=== PATIENT | female | born 1960 | race Caucasian/White ===

== ENCOUNTER 2016-04-29 10:44 | Emergency (ER) | payer OTHER ==
[~2016-04-29] VITALS: Ht 162.6 cm; Wt 66.0 kg
[~2016-04-29 10:44] MED LIST: ACET500C5 PO; IBUP800T25 PO; IBUPROFEN; OMEP20CA9
[2016-04-29 10:47] VITALS: Ht 162.6 cm; Wt 66.0 kg
[2016-04-29] MEDS ORDERED: LIDOCAINE/MYLANTA 40 ML BTL PO STA (11:31)
[2016-04-29] MEDS ORDERED: ONDANSETRON 4 MG INJ IV STA (11:31)
[2016-04-29] MEDS ORDERED: SOD CHLORIDE 0.9% 1,000 ML IV STA (11:31)
[2016-04-29] MEDS ORDERED: FAMOTIDINE 20 MG INJ IV STA (11:31)
[2016-04-29 12:03] LABS: ADD SCAN DIFF NO
[2016-04-29 12:09] LABS: BASOPHILS % 0.6 % (0.0-2.0); EOSINOPHILS # 0.1 10^3/ul (0.0-0.5); EOSINOPHILS % 1.4 % (0.0-7.0); HEMATOCRIT 40.5 % (37.0-47.0); HEMOGLOBIN 13.6 g/dl (12.0-16.0); LYMPHOCYTES # 2.5 10^3/ul (0.8-2.9); LYMPHOCYTES % 50.8 % (15.0-51.0); MEAN CORPUSCULAR HEMOGLOBIN 31.9 pg (29.0-33.0); MEAN CORPUSCULAR HGB CONC 33.6 g/dl (32.0-37.0); MEAN CORPUSCULAR VOLUME 94.8 fl (82.0-101.0); MEAN PLATELET VOLUME 12.8 fl (7.4-10.4); MONOCYTE # 0.4 10^3/ul (0.3-0.9); MONOCYTES % 7.8 % (0.0-11.0); NEUTROPHIL # 1.9 10^3/ul (1.6-7.5); NEUTROPHILS % 39.2 % (39.0-77.0); PLATELET COUNT 148 10^3/UL (140-415); RED BLOOD COUNT 4.27 10^6/ul (4.20-5.40); RED CELL DISTRIBUTION WIDTH 12.6 % (11.5-14.5); WHITE BLOOD COUNT 4.9 10^3/ul (4.8-10.8)
[2016-04-29 12:16] LABS: ALBUMIN 4.3 g/dl (3.3-4.9)
[2016-04-29 12:17] LABS: POTASSIUM 3.6 mmol/L (3.5-5.1)
[2016-04-29 12:19] LABS: ALBUMIN/GLOBULIN RATIO 1.3; BILIRUBIN,INDIRECT 0.1 mg/dl (0-1.1); BILIRUBIN,TOTAL 0.1 mg/dl (0.2-1.3); CREATININE 0.56 mg/dl (0.44-1.00); TOTAL PROTEIN 7.6 g/dl (6.1-8.1)
[2016-04-29 12:20] LABS: CALCIUM 9.2 mg/dl (8.4-10.2)
[2016-04-29] MEDS ORDERED: OMEP20CA16 PO (12:46)
--- NOTE | 2016-04-29 12:55 | ERD ---
ER Documentation Chief Complaint Date/Time DATE: 04/29/16 TIME: 12:51 Chief Complaint LUQ abd pain radiating to back x 5 days with N/V HPI 55-year-old female with a past medical history of gastritis presents to the ED complaining of nausea, vomiting that started 4 days ago. Reports that she had some slight bilious vomiting. Describes her abdomen pain as a hot sensation. Reports that it is in the left upper quadrant and is nonradiating. Rates it a 9 out of 10. Denies any vaginal bleeding, vaginal discharge, chest pain, shortness of breath, wheezing, cough, fever, chills. Reports that her last endoscopy was 3 years ago. States that she is currently not taking a PPI or H2 reagan. ROS All systems reviewed and are negative except as per history of present illness. Medications Home Meds Active Scripts Omeprazole* (Omeprazole*) 20 Mg Capsule., 20 MG PO BID, #30 Prov:LUIS FERNANDO MOHAMUD PA-C 04/29/16 Ibuprofen* (Motrin*) 800 Mg Tab, 800 MG PO Q6H Y for PAIN AND OR ELEVATED TEMP, #30 TAB Prov:CARLY WAKEFIELD PA-C 09/05/15 Acetaminophen* (Tylophen*) 500 Mg Capsule, 1 CAP PO Q6H Y for PAIN AND OR ELEVATED TEMP, #30 CAP 0 Refills Prov:ARDEN AVILES PA-C 07/14/15 Reported Medications [Ibuprofen] No Conflict Check 04/06/11 Omeprazole* (Prilosec*) 20 Mg Capsule. 04/03/11 Allergies Allergies: Coded Allergies: No Known Allergy (Unverified , 04/06/11) PMhx/Soc Medical and Surgical Hx: pt denies Medical Hx History of Surgery: Yes ( X4) Anesthesia Reaction: No Hx Neurological Disorder: No Hx Respiratory Disorders: No Hx Cardiac Disorders: No Hx Psychiatric Problems: No Hx Miscellaneous Medical Probl: Yes (ARTRITIS) Hx Alcohol Use: No Hx Substance Use: No Hx Tobacco Use: Yes Smoking Status: Current some day smoker Physical Exam Vitals Vital Signs Date Time Temp Pulse Resp B/P Pulse Ox O2 Delivery O2 Flow Rate FiO2 04/29/16 10:47 97.8 68 18 116/85 98 Physical Exam Const: Ytf-yno-nleekzemg, well-nourished. In no acute distress. Head: Atraumatic, normocephalic Eyes: Normal Conjunctiva without injection. No purulent discharge. ENT: Normal external ear, nose. Moist oropharynx without tonsillar exudates. Non -erythematous pharynx. Uvula midline. No drooling. No trismus. Neck: No cervical midline tenderness. Full range of motion. No meningismus. No cervical lymphadenopathy. No JVD. Resp: Clear to auscultation bilaterally. No wheezing, rhonchi, rales, or crackles. No accessory muscle use. No retractions. Cardio: Regular rate and rhythm. No murmurs, rubs or gallops. Abd: Soft, tenderness to palpation of the left upper quadrant, non distended. Normal bowel sounds. No palpable masses. No rebound tenderness. No guarding. Negative McBurney's point. Negative psoas sign. Negative obturator sign. Skin: No petechiae or rashes Back: No midline tenderness. No CVA tenderness. Ext: No cyanosis, or edema. Neur: Awake and alert. Normal gait. Normal coordination. Psych: Normal Mood and Affect Result Diagram: 04/29/16 1145 04/29/16 1145 Results 24 hrs Laboratory Tests Test 04/29/16 11:45 Alanine Aminotransferase (ALT/SGPT) 30IU/L Albumin 4.3g/dl Albumin/Globulin Ratio 1.30 Alkaline Phosphatase 81IU/L Anion Gap 15 Aspartate Amino Transf (AST/SGOT) 24IU/L Basophils # 0.010^3/ul Basophils % 0.6% Blood Urea Nitrogen 16mg/dl Calcium Level 9.2mg/dl Carbon Dioxide Level 29mmol/L Chloride Level 103mmol/L Creatinine 0.56mg/dl Direct Bilirubin 0.00mg/dl Eosinophils # 0.110^3/ul Eosinophils % 1.4% Globulin 3.30g/dl Glucose Level 76mg/dl Hematocrit 40.5% Hemoglobin 13.6g/dl Indirect Bilirubin 0.1mg/dl Lipase 136U/L Lymphocytes # 2.510^3/ul Lymphocytes % 50.8% Mean Corpuscular Hemoglobin 31.9pg Mean Corpuscular Hemoglobin Concent 33.6g/dl Mean Corpuscular Volume 94.8fl Mean Platelet Volume 12.8fl Monocytes # 0.410^3/ul Monocytes % 7.8% Neutrophils # 1.910^3/ul Neutrophils % 39.2% Nucleated Red Blood Cells # 0.010^3/ul Nucleated Red Blood Cells % 0.0/100WBC Platelet Count 08041^3/UL Potassium Level 3.6mmol/L Red Blood Count 4.2710^6/ul Red Cell Distribution Width 12.6% Sodium Level 143mmol/L Total Bilirubin 0.1mg/dl Total Protein 7.6g/dl White Blood Count 4.910^3/ul Current Medications Medications (Trade) Dose Ordered Sig/Silvana Route PRN Reason Start Time Stop Time Status Last Admin Dose Admin Sodium Chloride (NS) 1,000 ml @ 1,000 mls/hr Q1H STAT IV 04/29/16 11:31 04/29/16 12:30 DC 04/29/16 12:20 Famotidine (Pepcid Iv) 20 mg ONCE STAT IV 04/29/16 11:31 04/29/16 11:33 DC 04/29/16 12:20 Miscellaneous Medication (Gi Cocktail (2)) 40 ml ONCE STAT PO 04/29/16 11:31 04/29/16 11:33 DC 04/29/16 12:23 Ondansetron HCl (Zofran Inj) 4 mg ONCE STAT IV 04/29/16 11:31 04/29/16 11:33 DC 04/29/16 12:20 Procedures/MDM This is a 55-year-old female with a past medical history of gastritis presents to the ED complaining of left upper quadrant pain that started 4 days ago associated with vomiting. Patient is afebrile and nontoxic-appearing. Patient has normal vital signs. Patient was further worked up with CBC, CMP, lipase. Patient's pain and symptoms have improved after treatment with 1 L of normal saline, GI cocktail, 20 mg IV famotidine, 4 mg IV Zofran. CBC: No leukocytosis. No e/o of systemic infection. No e/o anemia. CMP: No e/o severe acidosis, alkalosis, renal failure, diabetic ketoacidosis, liver disease Lipase within normal limits. Urine: No leukocyte esterase, no nitrites, no hematuria. Patient symptoms are likely due to gastritis. I strictly instructed her to follow-up with a outside industrial sales representative for an endoscopy to rule out any gastric ulcers. A differential diagnosis considered includes but is not limited to gastritis, GERD, peptic ulcer disease, cholecystitis, choledocholithiasis, cholangitis, pancreatitis, appendicitis, bowel obstruction, ileus, volvulus, nephrolithiasis, pyelonephritis, hepatitis, perforated viscus, diverticulitis, abdominal hernia, acute abdomen, mesenteric ischemia or other emergent conditions. Discharge medications: Omeprazole Follow up with primary care physician in 1-2 days for referral to outside industrial sales representative. Instructed patient to return to the ED sooner for any worsening symptoms. Patient's questions were answered. Patient understood and agreed with discharge plan. Patient discharged stable. Departure Diagnosis: Primary Impression: Abdominal pain Abdominal location: left upper quadrant Qualified Code: R10.12 - Left upper quadrant pain Condition: Stable Patient Instructions: Abdominal Pain, Gastritis Vs. Ulcer Referrals: [facility] YOU HAVE RECEIVED A MEDICAL SCREENING EXAM AND THE RESULTS INDICATE THAT YOU DO NOT HAVE A CONDITION THAT REQUIRES URGENT TREATMENT IN THE EMERGENCY DEPARTMENT. FURTHER EVALUATION AND TREATMENT OF YOUR CONDITION CAN WAIT UNTIL YOU ARE SEEN IN YOUR DOCTORS OFFICE WITHIN THE NEXT 1-2 DAYS. IT IS YOUR RESPONSIBILITY TO MAKE AN APPOINTMENT FOR [facility]- CARE. IF YOU HAVE A PRIMARY DOCTOR --you should call your primary doctor and schedule an appointment IF YOU DO NOT HAVE A PRIMARY DOCTOR YOU CAN CALL OUR PHYSICIAN REFERRAL HOTLINE AT IF YOU CAN NOT AFFORD TO SEE A PHYSICIAN YOU CAN CHOSE FROM THE FOLLOWING [facility] [address] [facility]. [facility] [address] [facility]. [facility] [address] [facility] [facility] [address] [facility]. [facility] [address] [facility] [facility]. [address] [facility]. [facility] YOU HAVE RECEIVED A MEDICAL SCREENING EXAM AND THE RESULTS INDICATE THAT YOU DO NOT HAVE A CONDITION THAT REQUIRES URGENT TREATMENT IN THE EMERGENCY DEPARTMENT. FURTHER EVALUATION AND TREATMENT OF YOUR CONDITION CAN WAIT UNTIL YOU ARE SEEN IN YOUR DOCTORS OFFICE WITHIN THE NEXT 1-2 DAYS. IT IS YOUR RESPONSIBILITY TO MAKE AN APPOINTMENT FOR [facility]OLOW-UP CARE. IF YOU HAVE A PRIMARY DOCTOR --you should call your primary doctor and schedule and appointment IF YOU DO NOT HAVE A PRIMARY DOCTOR YOU CAN CALL OUR PHYSICIAN REFERRAL HOTLINE AT . IF YOU CAN NOT AFFORD TO SEE A PHYSICIAN YOU CAN CHOSE FROM THE FOLLOWING [facility] INSTITUTIONS: [facility] [place] [place] [address] [place] [address] [facility] [address] [place], [place] [id number] [place] [address] [address] [place] [address] [facility] URGENT CARE/SPECIALTIES Additional Instructions: Visite a diane cachorro hung para un EXAMEN para valente endoscopia. Regrese a estas instalaciones si no se mejora susie esperbamos o susie le alexs. LUIS FERNANDO MOHAMUD PA-C Apr 29, 2016 12:54
== END 2016-04-29 13:05 | disposition home or self-care (01) ==
LOC: FTE 10:44
DX: R10.12 Left upper quadrant pain (principal); F17.210 Nicotine dependence, cigarettes, uncomplicated
CPT/HCPCS: 80053; 83690; 85025; J2405; J7030; Z7610; 36415; 96374; 96375

== ENCOUNTER 2016-07-20 15:37 | Emergency (ER) | payer OTHER ==
[~2016-07-20] VITALS: Wt 66.0 kg
[~2016-07-20 15:37] MED LIST changes: +OMEP20CA16 PO
[2016-07-20] MEDS ORDERED: TETRACAINE 0.5% 4 ML OPH RIGHT EYE ONE (17:00)
[2016-07-20] MEDS ORDERED: FLUORESCEIN STRIP RIGHT EYE ONE (17:00)
--- NOTE | 2016-07-20 17:31 | ERD ---
ER Documentation Chief Complaint Date/Time DATE: 07/20/16 TIME: 17:26 Chief Complaint RIGHT EYE REDNESS, PAIN, DENIES INJURY HPI This 56-year-old female presents to emergency department today for eye pain and redness. Patient reports 60 minutes ago she felt itching in her right eye developed a burning sensation in addition to a sensation of foreign body explained "like a hair is in my eye". Reports that she looked in the [place] her I was shockingly red, she denies any watering, or mucousy discharge, patient denies any change in vision, denies any seasonal allergy symptoms or hypertension. Patient denies headache, nausea or vomiting. ROS All systems reviewed and are negative except as per history of present illness. Medications Home Meds Active Scripts Tetrahydrozoline Hcl/Peg's (Eye Moisturizing Relief Drp) 15 Ml Drops, 15 ML OP BID, #1 BOTTLE Prov:MAGGI,MELODY 07/20/16 Omeprazole* (Omeprazole*) 20 Mg Capsule., 20 MG PO BID, #30 Prov:LUIS FERNANDO MOHAMUD PA-C 04/29/16 Ibuprofen* (Motrin*) 800 Mg Tab, 800 MG PO Q6H Y for PAIN AND OR ELEVATED TEMP, #30 TAB Prov:CARLY WAKEFIELD PA-C 09/05/15 Acetaminophen* (Tylophen*) 500 Mg Capsule, 1 CAP PO Q6H Y for PAIN AND OR ELEVATED TEMP, #30 CAP 0 Refills Prov:ARDEN AVILES PA-C 07/14/15 Reported Medications [Ibuprofen] No Conflict Check 04/06/11 Omeprazole* (Prilosec*) 20 Mg Capsule. 04/03/11 Allergies Allergies: Coded Allergies: No Known Allergy (Unverified , 04/06/11) PMhx/Soc History of Surgery: Yes ( X4) Anesthesia Reaction: No Hx Neurological Disorder: No Hx Respiratory Disorders: No Hx Cardiac Disorders: No Hx Psychiatric Problems: No Hx Miscellaneous Medical Probl: Yes (ARTRITIS) Hx Alcohol Use: No Hx Substance Use: No Hx Tobacco Use: Yes Smoking Status: Current every day smoker Physical Exam Vitals Vital Signs Date Time Temp Pulse Resp B/P Pulse Ox O2 Delivery O2 Flow Rate FiO2 07/20/16 15:46 97.6 64 18 142/73 99 Vitals stable, triage notes were Physical Exam Const: No acute distress Head: Atraumatic EYE; conjunctiva right red at medial canthus mid pupil spreading to to 1800. No foreign body observed under eyelids, patient has mascara on lashes without mucus or crest. Lacrimal puncta without purulent discharge with palpation. Eye Exam: Visual Acuity: Right eye 20/40, left eye 20/30, both eyes 20/20 without corrective lenses Visual Coyne: Intact in all four quadrants bilaterally Lac ducts/glands: No swelling Lids w/ evertion: Normal, no foreign body Conj/[facility]: Clear, negative Fluorescein/Elizabeth's Anterior Chamber: Clear ENT: Normal External Ears, Nose and Mouth. Neck: Resp: Respirations even and unlabored Cardio: Abd: Skin: Back: Ext: Neur: Awake and alert Psych: Normal Mood and Affect Results 24 hrs Current Medications Medications (Trade) Dose Ordered Sig/Silvana Route PRN Reason Start Time Stop Time Status Last Admin Dose Admin Tetracaine HCl (Tetracaine 0.5% Steri-Unit Tuyet) 1 drop ONCE ONCE RIGHT EYE 07/20/16 17:00 07/20/16 17:01 DC Fluorescein Sodium (Iycsd-E-Mresg) 1 strip ONCE ONCE RIGHT EYE 07/20/16 17:00 07/20/16 17:01 DC Procedures/MDM This pleasant 55-year-old female presents to emergency department today for evaluation of sudden onset right eye pain, redness and itchy burning sensation. Patient denies any injury but has a foreign body sensation, suspected debris in eye, corneal abrasion, however this was ruled out with a normal eye examination with slit lamp and fluorescein stain. Visual acuity normal, patient has obvious blood red conjunctiva consistent with subconjunctival hemorrhage. Patient teaching provided. Patient discharged with ophthalmic moisturizing eyedrops for comfort, [id number] antihistamine for allergy symptoms. Return to emergency room for changes in vision or eye pain. I feel the patient is stable for discharge at this time with outpatient management by primary care physician with follow-up if indicated. I have discussed results, examination findings, the treatment plan with the patient and family present prior to discharge. Indications for emergent reevaluation, side effects of medication were also discussed. All questions were answered. Patient verbalizes understanding and agrees with plan of care. Departure Diagnosis: Primary Impression: Subconjunctival hemorrhage of right eye Condition: Good Patient Instructions: Subconjunctival Hemorrhage [facility] Additional Instructions: Thank you for for coming to [facility] for your care today. Please ask your nurse or provider if you have questions about your care today and do not leave until all your questions have been answered. Please use any medications given as directed and follow-up with your doctor (or the doctor you were referred to) in the next 2-3 days. If you do not have a primary care doctor you may follow up at the [facility] (listed below). You may also use motrin and tylenol as needed for fever and/or pain unless instructed otherwise by your provider or nurse. Indications for more urgent follow-up have been discussed, but you may return to the Emergency Department at ANY time for any worrisome or worsening symptoms. If you have abdominal pain, please know that no test or exam you received is perfect and you should follow up within 8 hours for continued pain. If you had any imaging studies today, such as an X-Ray or CT Scan, these studies will be reviewed later by a radiologist. You will be called if there are important findings that were not identified today, so make sure the contact information you provided at registration is correct. If you received any narcotic pain control medicine today, such as Vicodin, Morphine or Dilaudid, your coordination and judgment may be affected for a number of hours. Please do not drive or operate heavy machinery, and you may want someone to assist you at home. If you were given a prescription for narcotic medication, be aware that it is very addictive- use sparingly and only if necessary. RACHEAL TAY Jul 20, 2016 17:31
[2016-07-20] MEDS ORDERED: TETR15DR12 OP (17:33)
[2016-07-20 18:04] VITALS: BP 117/69; PULSE 57; RESP 10; TEMP 97.4
== END 2016-07-20 18:05 | disposition home or self-care (01) ==
LOC: FTE 15:37
DX: H11.31 Conjunctival hemorrhage, right eye (principal); F17.210 Nicotine dependence, cigarettes, uncomplicated
CPT/HCPCS: Z7502; Z7610; 99283

== ENCOUNTER 2016-08-06 09:02 | Day surgery (SDC) | payer OTHER ==
[~2016-08-06] VITALS: Ht 157.5 cm; Wt 62.5 kg
[~2016-08-06 09:02] MED LIST changes: +TETR15DR12 OP
[2016-08-06] MEDS ORDERED: meloxicam (09:39)
[2016-08-06] MEDS ORDERED: pantoprazole (09:39)
[2016-08-06 09:41] VITALS: Ht 157.5 cm; Wt 62.5 kg
[2016-08-06] MEDS ORDERED: LIDOCAINE 4% SOLUTION 50 ML BTL ONE (09:46)
[2016-08-06 09:53] VITALS: BP 122/69; PULSE 65; RESP 18
[2016-08-06] MEDS ORDERED: FENTAnyl 50 MCG/ML VIAL ONE (10:17)
[2016-08-06] MEDS ORDERED: MIDAZOLAM 1 MG/ML 2 ML INJ ONE ×2 (10:17)
[2016-08-06 10:45] VITALS: BP 116/59; PULSE 56; RESP 16
--- NOTE | 2016-08-06 10:56 | GILP ---
DATE OF PROCEDURE: 08/06/2016 PROCEDURE: Esophagogastroduodenoscopy. SURGEON: Camron Marquez MD PREOPERATIVE DIAGNOSIS: The patient presenting with history of chronic abdominal pain unresponsive to routine therapy including pantoprazole. Rule out peptic ulcer disease, esophagitis. POSTOPERATIVE DIAGNOSES: Multiple erosions in the antrum noted with mild diffuse erythema. Biopsy was done to rule out Helicobacter pylori infection. DESCRIPTION OF PROCEDURE: After the informed written consent was obtained, the patient was asked to lie on the left lateral side, 3 mg Versed and 50 mcg of fentanyl were given as intravenous anesthes ia. When the patient became somnolent, the Olympus video upper endoscope was introduced into the orophar ynx, then into the esophagus. Esophagus showed evidence of no ulcers, no neoplasm. No esophagitis. Scope at this time was advanced into the stomach. Multiple erosions were noted in the antrum. Di ffuse mild erythema noted in the rest of the gastric mucosa. Biopsy was done from the antrum, the l kathya curvature and the fundus to rule out H. pylori infection. Endoscope at this time was advanced into the duodenum. Duodenum appeared normal with no mucosal abnormality. Endoscope at this time w as withdrawn and the procedure was terminated. PLAN: Recommend change the pantoprazole to Dexilant 60 mg once a day for 2 months. Meanwhile wait for the pathology report. Dictated By: CAMRON FLORES/GUI Conf#: [id number] DID#: [id number] CC: CAMRON MARQUEZ MD; RANDY VÁZQUEZ M.D.;*[facility]*
== END 2016-08-06 17:07 | disposition home or self-care (01) ==
LOC: GIL 09:02
PROVIDERS: ATTEND Internal Medicine Gastroenterology
DX: K29.50 Unspecified chronic gastritis without bleeding (principal)
CPT/HCPCS: 43239; 88305; 88312; J2250; J3010; Z7610

== ENCOUNTER 2016-08-19 10:00 | Emergency (ER) | payer OTHER ==
[~2016-08-19] VITALS: Ht 157.5 cm; Wt 65.0 kg
[~2016-08-19 10:00] MED LIST changes: -ACET500C5 PO; -IBUP800T25 PO; -IBUPROFEN; -OMEP20CA16 PO; -OMEP20CA9; -TETR15DR12 OP; +meloxicam; +pantoprazole
[2016-08-19 10:03] VITALS: Ht 157.5 cm; Wt 65.0 kg
[2016-08-19] MEDS ORDERED: OMEP40CA6 PO (10:18)
[2016-08-19] MEDS ORDERED: ONDANSETRON 4 MG INJ IV STA (10:21)
[2016-08-19] MEDS ORDERED: morphine 4 MG/ML VIAL IV STA (10:21)
[2016-08-19 10:52] LABS: ADD SCAN DIFF NO
[2016-08-19 10:54] LABS: BASOPHILS % 0.6 % (0.0-2.0); EOSINOPHILS % 1.1 % (0.0-7.0); HEMATOCRIT 39.5 % (37.0-47.0); LYMPHOCYTES # 1.7 10^3/ul (0.8-2.9); LYMPHOCYTES % 46.1 % (15.0-51.0); MEAN CORPUSCULAR HEMOGLOBIN 33.2 pg (29.0-33.0); MEAN CORPUSCULAR HGB CONC 35.4 g/dl (32.0-37.0); MEAN CORPUSCULAR VOLUME 93.6 fl (82.0-101.0); MEAN PLATELET VOLUME 12.9 fl (7.4-10.4); MONOCYTE # 0.3 10^3/ul (0.3-0.9); NEUTROPHIL # 1.6 10^3/ul (1.6-7.5); NEUTROPHILS % 44.2 % (39.0-77.0); PLATELET COUNT 141 10^3/UL (140-415); RED BLOOD COUNT 4.22 10^6/ul (4.20-5.40); RED CELL DISTRIBUTION WIDTH 12.3 % (11.5-14.5); WHITE BLOOD COUNT 3.6 10^3/ul (4.8-10.8)
[2016-08-19 11:01] LABS: ADD UMIC NO; UR ASCORBIC ACID NEGATIVE (NEGATIVE); UR BILIRUBIN (Dip) NEGATIVE (NEGATIVE); UR BLOOD (Dip) NEGATIVE (NEGATIVE); UR CLARITY CLEAR (CLEAR); UR COLOR STRAW (YELLOW); UR GLUCOSE (Dip) NEGATIVE (NEGATIVE); UR KETONES (Dip) NEGATIVE (NEGATIVE); UR LEUKOCYTE ESTERASE (Dip) NEGATIVE Leu/ul (NEGATIVE); UR NITRITE (Dip) NEGATIVE (NEGATIVE); UR SPECIFIC GRAVITY (Dip) 1.005 (1.003-1.030); UR TOTAL PROTEIN (Dip) NEGATIVE (NEGATIVE); UR UROBILINOGEN (Dip) NEGATIVE (NEGATIVE)
--- NOTE | 2016-08-19 11:10 | RADRPT ---
PROCEDURE: Right upper quadrant abdominal ultrasound. CLINICAL INDICATION: Abdominal pain. TECHNIQUE: Multiple real-time longitudinal and transverse images of the right upper quadrant of th e abdomen were acquired utilizing a curved array transducer. Images were reviewed on a high-resoluti on PACS workstation. COMPARISON: None available. FINDINGS: There is normal size and echogenicity of the liver with no focal mass lesion identified . There is h epatopedal flow within the main portal vein. There is no gallbladder wall thickening, cholelithiasis , or pericholecystic fluid. There are multiple gallbladder polyps, the largest of which measures 5 m m. There is no intra or extrahepatic biliary ductal dilatation. The common bile duct measures 2.2 mm in maximal dimension. The visualized portions of the pancreas are unremarkable. No free fluid is i dentified. The right kidney measures 10.1 cm in length and demonstrates normal echogenicity. There is no hydron ephrosis, nephrolithiasis, or renal mass. IMPRESSION: 1. No acute abnormality or findings to suggest a source of the patient's symptoms. 2. Gallbladder polyps, the largest measuring 5 mm. RPTAT: EE .Miguelito Cedillo MD, MD Date Time Electronically viewed and signed by .Miguelito Cedillo MD, MD on 08/19/2016 11:09 .P/
[2016-08-19 11:11] LABS: ALANINE AMINOTRANSFERASE 35 IU/L (13-69); ALBUMIN 4.8 g/dl (3.3-4.9); ALBUMIN/GLOBULIN RATIO 1.77; ALKALINE PHOSPHATASE 74 IU/L (42-121); ANION GAP 9 (8-16); ASPARTATE AMINO TRANSFERASE 28 IU/L (15-46); BILIRUBIN,INDIRECT 0.3 mg/dl (0-1.1); BILIRUBIN,TOTAL 0.3 mg/dl (0.2-1.3); BLOOD UREA NITROGEN 14 mg/dl (7-20); CALCIUM 9.4 mg/dl (8.4-10.2); CARBON DIOXIDE 26 mmol/L (21-31); CHLORIDE 105 mmol/L (97-110); CREATININE 0.65 mg/dl (0.44-1.00); GLUCOSE 107 mg/dl (70-220); POTASSIUM 3.9 mmol/L (3.5-5.1); SODIUM 136 mmol/L (135-144); TOTAL PROTEIN 7.5 g/dl (6.1-8.1)
[2016-08-19 11:36] LABS: TROPONIN-I < 0.012 ng/ml (0.00-0.12)
[2016-08-19] MEDS ORDERED: HYDR-902 PO (12:40)
[2016-08-19] MEDS ORDERED: ONDA4TAB14 PO (12:40)
[2016-08-19] MEDS ORDERED: PANT40TA3 PO (12:40)
--- NOTE | 2016-08-19 12:42 | ERD ---
ER Documentation Chief Complaint Date/Time DATE: 08/19/16 TIME: 12:41 Chief Complaint RUQ PAIN WITH NAUSEA, 2WKS, GETTING WORSE TODAY HPI Patient is a 56-year-old female with gastritis who presents with abdominal pain. She has right upper quadrant abdominal pain which started 3 weeks ago. The pain comes and goes. She said the pain was worse today. She denies treatment. She has no fevers. She has had nausea but no vomiting. She had endoscopy done by Dr. Marquez on August 06 of this year. Upon review of old medical records this is the patient's eighth visit to the ER since 2011. ROS All systems reviewed and are negative except as per history of present illness. Medications Home Meds Active Scripts Pantoprazole* (Protonix*) 40 Mg Tablet., 40 MG PO DAILY, #20 TAB Prov:MALIK LACEY MD 08/19/16 Ondansetron (Ondansetron Odt) 4 Mg Tab.rapdis, 4 MG PO Q6H Y for NAUSEA AND/OR VOMITING, #10 TAB Prov:MALIK LACEY MD 08/19/16 Hydrocodone/Acetaminophen ([place] 10-325 Tablet) 1 Each Tablet, 1 TAB PO Q6H Y for PAIN, #7 TAB Prov:MALIK LACEY MD 08/19/16 Reported Medications Omeprazole* (Omeprazole*) 40 Mg Capsule., 40 MG PO DAILY, #30 CAP 08/19/16 Discontinued Reported Medications [pantoprazole] No Conflict Check 08/06/16 [meloxicam] No Conflict Check 08/06/16 Allergies Allergies: Coded Allergies: No Known Allergy (Unverified , 08/19/16) PMhx/Soc History of Surgery: No Anesthesia Reaction: No Hx Neurological Disorder: No Hx Respiratory Disorders: No Hx Cardiac Disorders: No Hx Psychiatric Problems: No Hx Miscellaneous Medical Probl: No Hx Alcohol Use: No Hx Substance Use: No Hx Tobacco Use: Yes Smoking Status: Former smoker FmHx Family History: No diabetes Physical Exam Vitals Vital Signs Date Time Temp Pulse Resp B/P Pulse Ox O2 Delivery O2 Flow Rate FiO2 08/19/16 12:47 98.0 62 14 126/68 100 Room Air 08/19/16 11:46 98.5 58 16 112/59 100 08/19/16 10:03 96.9 67 19 136/64 97 Physical Exam Const: Mild distress secondary to pain Head: Atraumatic Eyes: Normal Conjunctiva ENT: Normal External Ears, Nose and Mouth. Neck: Full range of motion..~ No meningismus. Resp: Clear to auscultation bilaterally Cardio: Regular rate and rhythm, no murmurs Abd: Soft, right upper quadrant tenderness to palpation without rebound or guarding Skin: No petechiae or rashes Back: No midline or flank tenderness Ext: No cyanosis, or edema Neur: Awake and alert Psych: Normal Mood and Affect Result Diagram: 08/19/16 1035 08/19/16 1035 Results 24 hrs Laboratory Tests Test 08/19/16 10:35 White Blood Count 3.610^3/ul Red Blood Count 4.2210^6/ul Hemoglobin 14.0g/dl Hematocrit 39.5% Mean Corpuscular Volume 93.6fl Mean Corpuscular Hemoglobin 33.2pg Mean Corpuscular Hemoglobin Concent 35.4g/dl Red Cell Distribution Width 12.3% Platelet Count 06402^3/UL Mean Platelet Volume 12.9fl Neutrophils % 44.2% Lymphocytes % 46.1% Monocytes % 8.0% Eosinophils % 1.1% Basophils % 0.6% Nucleated Red Blood Cells % 0.0/100WBC Neutrophils # 1.610^3/ul Lymphocytes # 1.710^3/ul Monocytes # 0.310^3/ul Eosinophils # 0.010^3/ul Basophils # 0.010^3/ul Nucleated Red Blood Cells # 0.010^3/ul Urine Color STRAW Urine Clarity CLEAR Urine pH 7.0 Urine Specific [place] 1.005 Urine Ketones NEGATIVEmg/dL Urine Nitrite NEGATIVEmg/dL Urine Bilirubin NEGATIVEmg/dL Urine Urobilinogen NEGATIVEmg/dL Urine Leukocyte Esterase NEGATIVELeu/ul Urine Hemoglobin NEGATIVEmg/dL Urine Glucose NEGATIVEmg/dL Urine Total Protein NEGATIVEmg/dl Sodium Level 136mmol/L Potassium Level 3.9mmol/L Chloride Level 105mmol/L Carbon Dioxide Level 26mmol/L Anion Gap 9 Blood Urea Nitrogen 14mg/dl Creatinine 0.65mg/dl Glucose Level 107mg/dl Calcium Level 9.4mg/dl Total Bilirubin 0.3mg/dl Direct Bilirubin 0.00mg/dl Indirect Bilirubin 0.3mg/dl Aspartate Amino Transf (AST/SGOT) 28IU/L Alanine Aminotransferase (ALT/SGPT) 35IU/L Alkaline Phosphatase 74IU/L Troponin I < 0.012ng/ml Total Protein 7.5g/dl Albumin 4.8g/dl Globulin 2.70g/dl Albumin/Globulin Ratio 1.77 Lipase 177U/L Current Medications Medications (Trade) Dose Ordered Sig/Silvana Route PRN Reason Start Time Stop Time Status Last Admin Dose Admin Morphine Sulfate (morphine) 4 mg ONCE STAT IV 08/19/16 10:21 08/19/16 10:22 DC 08/19/16 11:11 Ondansetron HCl (Zofran Inj) 4 mg ONCE STAT IV 08/19/16 10:21 08/19/16 10:22 DC 08/19/16 11:00 Procedures/MDM EKG read by me: Rate/Rhythm: Regular rate and rhythm at a rate of 64 Intervals: Normal Impression: No evidence of ischemia or arrhythmia Ultrasound shows gallbladder polyps per radiology. Smoking Cessation Therapy: Pt. was lectured for greater than 3 minutes on the health risks of continued smoking and the benefits of cessation. Patient is a 56-year-old female who presents with abdominal pain. Laboratory studies were basically normal. EKG was normal. Ultrasound was negative for gallbladder infection. At this point I believe outpatient management is appropriate. I doubt cholecystitis, pancreatitis, bowel obstruction, or appendicitis. I believe outpatient management is appropriate but the patient will need to follow-up closely with the primary doctor within 24 hours. She can return sooner for any worsening symptoms. She was given copies of her laboratory studies and ultrasound report prior to discharge. Departure Diagnosis: Primary Impression: Abdominal pain Abdominal location: right upper quadrant Qualified Code: R10.11 - Right upper quadrant abdominal pain Condition: Fair Patient Instructions: Abdominal Pain Additional Instructions: Llame al doctor MAANA y [place] valente SAGE PARA DENTRO DE 1-2 ESCALONA.Dgale a la secretaria que nosotros le instruimos hacer esta sage.Avise o llame si dinae condicin se empeora antes de la sage. Regresa aqui si peor o no mejor. MALIK LACEY MD Aug 19, 2016 12:41
[2016-08-19 12:47] VITALS: BP 126/68; PULSE 62; RESP 14; TEMP 98
== END 2016-08-19 12:49 | disposition home or self-care (01) ==
LOC: E/R 10:00
DX: R10.11 Right upper quadrant pain (principal); R11.0 Nausea; Z87.891 Personal history of nicotine dependence
CPT/HCPCS: 36415; 76705; 80053; 81003; 83690; 84484; 85025; 93005; J2270; J2405; Z7502

== ENCOUNTER 2016-11-07 06:19 | Day surgery (SDC) | payer OTHER ==
[2016-11-07] VITALS (9 sets, daily range): BP systolic 101–131; BP diastolic 54–72; PULSE 54–64; RESP 12–18; Ht 157.5 cm; Wt 63.0 kg
[~2016-11-07] VITALS: Ht 157.5 cm; Wt 63.0 kg
[~2016-11-07 06:19] MED LIST changes: +CEFAZOLIN 2 GM/50 ML (PMX) 50 ML IVPB SCH; +HYDR-902 PO; +OMEP40CA6 PO; +ONDA4TAB14 PO; +PANT40TA3 PO; +SOD CHLORIDE 0.9% 1,000 ML IV SCH; -meloxicam; -pantoprazole
[2016-11-07] MEDS ORDERED: CALC-143 PO (07:28)
[2016-11-07] MEDS ORDERED: ATOR40TA68 PO (07:28)
[2016-11-07] MEDS ORDERED: OXYCODONE/ACETAMINOPHEN (5/325) TAB PO PRN ×2 (08:00)
[2016-11-07] MEDS ORDERED: PROCHLORPERAZINE 10 MG INJ IV PRN (08:00)
[2016-11-07] MEDS ORDERED: ONDANSETRON 4 MG INJ IV PRN (08:00)
[2016-11-07] MEDS ORDERED: HYDROmorphONE (0.2 MG/ML) 10ML SYG IV PRN ×2 (08:00)
[2016-11-07] MEDS ORDERED: FENTAnyl 50 MCG/ML VIAL IV PRN (08:00)
[2016-11-07] MEDS ORDERED: MEPERIDINE 25 MG INJ IV PRN (08:00)
[2016-11-07] MEDS ORDERED: DIPHENHYDRAMINE 50 MG INJ IV PRN (08:00)
[2016-11-07] MEDS ORDERED: ROCURONIUM 50 MG INJ ONE (08:50)
[2016-11-07] MEDS ORDERED: CEFAZOLIN 1 GM INJ ONE (08:50)
[2016-11-07] MEDS ORDERED: SUCCINYLCHOLINE CHLORIDE 100 MG/5 ML SYG IV ONE (08:50)
[2016-11-07] MEDS ORDERED: LIDOCAINE 2% (SDV) 5 ML INJ ONE (08:50)
[2016-11-07] MEDS ORDERED: PROPOFOL 20 ML ONE (08:50)
[2016-11-07] MEDS ORDERED: MIDAZOLAM 1 MG/ML 2 ML INJ ONE (08:50)
[2016-11-07] MEDS ORDERED: FENTAnyl 50 MCG/ML VIAL ONE (08:51)
[2016-11-07] MEDS ORDERED: DEXAMETHASONE 4 MG/ML 1 ML INJ ONE (09:04)
[2016-11-07] MEDS ORDERED: BUPIVACAINE 0.25% (MPF) 30 ML INJ ONE (09:04)
[2016-11-07] MEDS ORDERED: METOCLOPRAMIDE 10 MG INJ ONE (09:04)
[2016-11-07] MEDS ORDERED: ONDANSETRON 4 MG INJ ONE (09:04)
[2016-11-07] MEDS ORDERED: SUGAMMADEX SODIUM 200 MG/2 ML VIAL IV ONE (09:14)
[2016-11-07] MEDS ORDERED: KETOROLAC 30 MG INJ ONE (09:17)
--- NOTE | 2016-11-07 09:33 | SIPON ---
Date/Time of Note Date/Time of Note DATE: 11/07/16 TIME: 09:32 Operative Report Preoperative Diagnosis symptomatic gallstones Postoperative Diagnosis same Operation/Procedure Performed 1. laparoscopic cholecystectomy 2. therapeutic injection of subcutaneous marcaine Surgeon see signature line oceanographer assistant none Anesthesia: general Estimated blood loss: 0 - 10 ml's Transfusion Required none Specimen gallbladder Grafts/Implants none Complications none Kermit STEINER Nov 07, 2016 09:33
[2016-11-07] MEDS ORDERED: HYDROCODONE/APAP (5/325) TAB PO ONE (10:00)
--- NOTE | 2016-11-07 10:12 | OPR ---
DATE OF OPERATION: 11/07/2016 INDICATION: The patient is a 56-year-old female with symptomatic gallstones. She requests surgical excision of her gallbladder. Risks, alternatives, benefits of procedure were discussed. The patient expressed understanding and consents to the operation. Potential complications including, but not limited to bleeding, infection, intra-abdominal organ injury, bile duct injury, need for reoperation, and possibly were discussed with the patient. Patient expresses understanding and consents to the operation. PREOPERATIVE DIAGNOSIS: Symptomatic gallstones. POSTOPERATIVE DIAGNOSIS: Symptomatic gallstones. OPERATIONS: 1. Laparoscopic cholecystectomy. 2. Therapeutic subcutaneous Marcaine injection. SURGEON: Hemanth Isidro MD SPECIMEN: Gallbladder. COMPLICATIONS: None. ESTIMATED BLOOD LOSS: 10 mL. OPERATIVE PROCEDURE: Patient was taken to the operating room and prepped and draped in usual sterile fashion. Surgical time-out was performed. IV antibiotics were given. Infraumbilical transverse incision was made with a 15 blade. Dissection cautery was carried down to the fascia. The fascia was grasped with Pastor's and divided with curved Grier scissors. 0 Vicryl U stitch was placed into the fascia. A balloon Mast trocar was introduced. Pneumoperitoneum was established. A midepigastric 12 mm optical trocar was placed under direct visualization. Right upper quadrant and right upper flank 5 mm optical trocar was placed under direct visualization. Upon initial inspection, there were some adhesions to the gallbladder. The gallbladder was retracted in a lateral and outward direction. Lateral dissection was initiated with cautery to allow mobilization. The cystic duct was carefully dissected out. The critical view was established. The cystic duct was divided with 3 clips proximal, and 1 clip distal. The division was performed with a 35 mm echelon vascular stapler. The cystic artery was also included in the staple load for the division. The gallbladder was taken off the gallbladder bed. There was good hemostasis. The gallbladder was retrieved using an EndoCatch bag. The ports removed under direct visualization, an 0 Vicryl U stitch was tied down. The skin was closed using skin jennifer. Therapeutic subcutaneous Marcaine was injected throughout the port sites. Dry dressings were applied. Dictated By: Adrien Caballero /yg/kim /Document#: [id number]
--- NOTE | 2016-11-07 16:37 | RADRPT ---
Vent Rate: 56 bpm RR Interval: 0 msec MD Interval: 114 msec QRS Duration: 80 msec QT Interval: 430 msec QTC Interval: 414 msec P-R-T [place]: 39 - 50 - 21 degrees Sinus bradycardia Otherwise normal ECG Electronically Signed By: Adrian Phillips [id number]
== END 2016-11-07 12:00 | disposition home or self-care (01) ==
LOC: SDS 06:19
PROVIDERS: ATTEND Surgery
DX: K80.20 Calculus of gallbladder without cholecystitis without obstruction (principal); E78.5 Hyperlipidemia, unspecified
CPT/HCPCS: 47562; 88304; 93005; J0690; J1100; J1170; J1885; J2250; J2405; J2765; J3010; Z7512; Z7610; J7999

== ENCOUNTER 2017-03-31 12:03 | Emergency (ER) | END 2017-03-31 17:19 | disposition left against medical advice (07) ==

== ENCOUNTER 2017-10-31 11:40 | Emergency (ER) | END 2017-10-31 14:04 | disposition home or self-care (01) ==

== ENCOUNTER 2017-12-03 09:38 | Emergency (ER) | END 2017-12-03 11:00 | disposition home or self-care (01) ==

== ENCOUNTER 2018-05-18 12:11 | Emergency (ER) | payer OTHER ==
[~2018-05-18] VITALS: Wt 58.0 kg
[~2018-05-18 12:11] MED LIST changes: +ACET500C5 PO; +ATOR40TA68 PO; +CALC-143 PO; -CEFAZOLIN 2 GM/50 ML (PMX) 50 ML IVPB SCH; +CEPH-443 PO; +GABA300C16 PO; -HYDR-902 PO; +NAPR-985 PO; -ONDA4TAB14 PO; -PANT40TA3 PO; +PHEN-537 PO; -SOD CHLORIDE 0.9% 1,000 ML IV SCH; +TRAM50TA2 PO
[2018-05-18] MEDS ORDERED: KETOROLAC 30 MG INJ IM STA (13:05)
[2018-05-18] MEDS ORDERED: NAPR-985 PO (13:13)
--- NOTE | 2018-05-18 13:13 | ERD ---
ER Documentation Chief Complaint Chief Complaint back pain HPI Is a 57-year-old female who presents to the emergency room with complaint of right-sided pain x1 week. States pain starts in right flank and radiates down into right groin. Also states pain increases with walking and bending. Denies trauma, denies history of kidney stones. Denies dysuria. ROS All systems reviewed and are negative except as per history of present illness. Medications Home Meds Active Scripts Naproxen* (Naprosyn*) 500 Mg Tablet, 500 MG PO BID PRN for PAIN AND/OR INFLAMMATION, #30 TAB Prov:LUCIA CAREY [employer] OPERATOR 05/18/18 Gabapentin* (Gabapentin*) 300 Mg Capsule, 300 MG PO BID, #30 CAP Prov:AIDEE CROOKS DO 12/03/17 Acetaminophen* (Tylophen*) 500 Mg Capsule, 1 CAP PO Q6H PRN for PAIN AND OR ELEVATED TEMP, #30 CAP Prov:AIDEE CROOKS DO 12/03/17 Tramadol HCl (Tramadol HCl) 50 Mg Tablet, 50 MG PO Q4 PRN for PAIN, #20 TAB Prov:GURVINDER HERBERT PA-C 10/31/17 Naproxen* (Naprosyn*) 500 Mg Tablet, 500 MG PO BID PRN for PAIN AND/OR INFLAMMATION, #30 TAB Prov:GURVINDER HERBERT PA-C 10/31/17 Cephalexin* (Keflex*) 500 Mg Capsule, 500 MG PO QID for 7 Days, CAP Prov:NANCY NEVAREZ PA-C 07/04/17 Phenazopyridine Hcl* (Pyridium*) 100 Mg Tab, 100 MG PO TID PRN for URINARY PAIN, #8 TAB Prov:NANCY NEVAREZ PA-C 07/04/17 Reported Medications Calcium Citrate/Vitamin D (Citracal-Vitamin D 200 MG-250) 1 Each Tablet, 1 EACH PO BID, TAB 11/07/16 Atorvastatin* (Atorvastatin*) 40 Mg Tablet, 10 MG PO QHS, #30 TAB 11/07/16 Omeprazole* (Omeprazole*) 40 Mg Capsule.dr, 40 MG PO DAILY, #30 CAP 08/19/16 Allergies Allergies: Coded Allergies: No Known Allergy (Unverified , 12/03/17) PMhx/Soc History of Surgery: Yes (PARTIAL HYSTERECTOMY, C/ S X 4) Anesthesia Reaction: No Hx Neurological Disorder: No Hx Respiratory Disorders: No Hx Cardiac Disorders: Yes (HLP) Hx Psychiatric Problems: No Hx Miscellaneous Medical Probl: No Hx Alcohol Use: Yes (OCC.) Hx Substance Use: No Hx Tobacco Use: Yes FmHx Family History: No diabetes, No coronary disease, No other Physical Exam Vitals Vital Signs Date Temp Pulse Resp B/P (MAP) Pulse Ox O2 O2 Flow FiO2 Time Delivery Rate 05/18/18 98.0 57 16 116/58 98 Room Air 14:34 (77) 05/18/18 98.1 65 18 120/59 99 12:15 (79) Physical Exam Const: No acute distress Head: Atraumatic Eyes: Normal Conjunctiva, PERRL ENT: Normal External Ears, Nose and Mouth. Pharynx pink, no lesions, no exudate Neck: Full range of motion. No meningismus. Resp: Clear to auscultation bilaterally Cardio: Regular rate and rhythm, no murmurs Abd: Soft, non tender, non distended. Normal bowel sounds Skin: No petechiae or rashes Back: No midline or flank tenderness to palpation. +straight leg raise to right leg, burning pain down posterior to anterior LE Ext: No cyanosis, or edema Neur: Awake and alert Psych: Normal Mood and Affect Results 24 hrs Laboratory Tests Test 05/18/18 13:25 Urine Color YELLOW Urine Clarity SLIGHTLY CLOUDY Urine pH 6.0 Urine Specific [place] 1.013 Urine Ketones NEGATIVE mg/dL Urine Nitrite NEGATIVE mg/dL Urine Bilirubin NEGATIVE mg/dL Urine Urobilinogen NEGATIVE mg/dL Urine Leukocyte Esterase NEGATIVE Elizabeth/ul Urine Microscopic RBC 0 /HPF Urine Microscopic WBC 0 /HPF Urine Hemoglobin NEGATIVE mg/dL Urine Glucose NEGATIVE mg/dL Urine Total Protein NEGATIVE mg/dl Current Medications Medications Dose Sig/Silvana Start Time Status Last (Trade) Ordered Route PRN Stop Time Admin Dose Reason Admin 10 mg ONCE ONCE 05/18/18 DC 05/18/18 Dexamethasone IM 13:30 05/18/18 13:48 (Decadron) 13:31 Ketorolac 30 mg ONCE STAT 05/18/18 DC 05/18/18 Tromethamine IM 13:05 05/18/18 13:48 (Toradol) 13:07 Procedures/MDM This is a 57-year-old patient who reports to the emergency room with complaint of right-sided flank pain radiating into right groin. This patient has been evaluated for kidney stone versus sciatic pain. Patient musculoskeletal exam positive for symptoms of sciatica, right straight leg raise elicits pain approximately 30 degrees increasing with foot flexion, pain ra diates down into right lower leg. Low suspicion for spinal abscess, malignancy, other spinal abnormality as spine is nontender, no swelling, no crepitus. Neurological burning pain only present with lengthening of leg and bending over. Pain is resolved with repositioning. Patient reports increased physical activity lately that she believes may have caused her musculoskeletal strain. Urinalysis to check for blood negative, no indication for kidney stone or UTI. Patient provided with instructions on use of NSAIDs, stretching, following up with primary care provider for physical therapy referral. Departure Diagnosis: Primary Impression: Sciatic leg pain Condition: Stable Patient Instructions: Back Pain W/ Sciatica [facility]errals: [facility] Additional Instructions: Thank you very much for allowing us to participate in your care. Your health and safety is our top priority at [facility]. Call your primary care doctor TOMORROW for an appointment during the next 2-4 days and bring all the information and medications prescribed. Have prescriptions filled and follow precisely the directions on the label. If the symptoms get worse and your provider is unavailable, return to the Emergency Department immediately. Take NSAIDs as necessary for pain, increase hydration. Return to the ED with any blood in urine, difficulty with urination, fevers. Return to the emergency room immediately with any severe numbness or tingling, difficulty walking, worsening of symptoms. LUCIA CAREY NP May 18, 2018 13:13
[2018-05-18] MEDS ORDERED: DEXAMETHASONE 10 MG/ML 1 ML INJ IM ONE (13:30)
[2018-05-18 14:34] VITALS: BP 116/58; PULSE 57; RESP 16
== END 2018-05-18 14:37 | disposition home or self-care (01) ==
LOC: FTE 12:11
DX: M54.31 Sciatica, right side (principal); Z87.891 Personal history of nicotine dependence
CPT/HCPCS: 81001; 96372; J1100; J1885; Z7502; 81003

== ENCOUNTER 2018-06-26 09:38 | Emergency (ER) | payer OTHER ==
[~2018-06-26] VITALS: Ht 162.6 cm; Wt 72.0 kg
[2018-06-26 09:42] VITALS: Ht 162.6 cm; Wt 72.0 kg
[2018-06-26] MEDS ORDERED: SOD CHLORIDE 0.9% 1,000 ML IV STA (10:39)
[2018-06-26] MEDS ORDERED: morphine 2 MG INJ IV STA (10:39)
[2018-06-26] MEDS ORDERED: DEXAMETHASONE 10 MG/ML 1 ML INJ IV ONE (11:00)
[2018-06-26] MEDS ORDERED: SOD CHLORIDE 0.9% 100 ML ONE (12:08)
[2018-06-26] MEDS ORDERED: IOHEXOL 300MG/ML 150 ML BTL ONE (12:08)
[2018-06-26] MEDS ORDERED: IBUP-1542 PO (13:36)
[2018-06-26] MEDS ORDERED: CYCL10TA7 PO (13:36)
[2018-06-26] MEDS ORDERED: PRED20TA PO (13:36)
[2018-06-26 14:01] VITALS: BP 124/67; PULSE 59; RESP 18
--- NOTE | 2018-06-26 16:00 | ERD ---
ER Documentation Chief Complaint Chief Complaint pt is bib self with c/o left back pain radiating to leg HPI This is a 58-year-old female who presents the emergency room with left sided back pain radiating to the leg this pain has radiated from right low back. Patient was seen at this ER for right lower back pain 5 weeks ago. She states she followed up with her doctor but has not received any physical therapy. Reports increased fatigue, 5 pound weight loss in 1 week, chronic loose stool that is "skinny." Patient denies fevers or unusual bleeding. Family history significant for brother who of leukemia 7 years ago, father from pancreatic cancer. ROS All systems reviewed and are negative except as per history of present illness. Medications Home Meds Active Scripts Prednisone* (Prednisone*) 20 Mg Tab, 40 MG PO DAILY for 4 Days, TAB Prov:LUCIA CAREY NP 06/26/18 Ibuprofen* (Motrin*) 600 Mg Tab, 600 MG PO Q6 for 10 Days, #30 TAB Prov:LUCIA CAREY NP 06/26/18 Cyclobenzaprine Hcl* (Cyclobenzaprine Hcl*) 10 Mg Tablet, 10 MG PO Q8 PRN for MUSCLE SPASMS for 7 Days, #14 TAB Prov:LUCIA CAREY NP 06/26/18 Naproxen* (Naprosyn*) 500 Mg Tablet, 500 MG PO BID PRN for PAIN AND/OR INFLAMM ATION, #30 TAB Prov:LUCIA CAREY NP 05/18/18 Gabapentin* (Gabapentin*) 300 Mg Capsule, 300 MG PO BID, #30 CAP Prov:AIDEE CROOKS DO 12/03/17 Acetaminophen* (Tylophen*) 500 Mg Capsule, 1 CAP PO Q6H PRN for PAIN AND OR ELEVATED TEMP, #30 CAP Prov:AIDEE CROOKS DO 12/03/17 Tramadol HCl (Tramadol HCl) 50 Mg Tablet, 50 MG PO Q4 PRN for PAIN, #20 TAB Prov:GURVINDER HERBERT PA-C 10/31/17 Naproxen* (Naprosyn*) 500 Mg Tablet, 500 MG PO BID PRN for PAIN AND/OR INFLAMMATION, #30 TAB Prov:GURVINDER HERBERT PA-C 10/31/17 Cephalexin* (Keflex*) 500 Mg Capsule, 500 MG PO QID for 7 Days, CAP Prov:NANCY NEVAREZ PA-C 07/04/17 Phenazopyridine Hcl* (Pyridium*) 100 Mg Tab, 100 MG PO TID PRN for URINARY PAIN, #8 TAB Prov:GERI NANCY DAVID 07/04/17 Reported Medications Calcium Citrate/Vitamin D (Citracal-Vitamin D 200 MG-250) 1 Each Tablet, 1 EACH PO BID, TAB 11/07/16 Atorvastatin* (Atorvastatin*) 40 Mg Tablet, 10 MG PO QHS, #30 TAB 11/07/16 Omeprazole* (Omeprazole*) 40 Mg Capsule.dr, 40 MG PO DAILY, #30 CAP 08/19/16 Allergies Allergies: Coded Allergies: No Known Allergy (Unverified , 12/03/17) PMhx/Soc History of Surgery: Yes (PARTIAL HYSTERECTOMY, C/ S X 4) Anesthesia Reaction: No Hx Neurological Disorder: No Hx Respiratory Disorders: No Hx Cardiac Disorders: No Hx Psychiatric Problems: No Hx Miscellaneous Medical Probl: Yes (ARTHRITIS, SCIATICA, GASTRITIS, FIBROMYALGIA) Hx Alcohol Use: Yes (OCCASIONAL) Hx Substance Use: No Hx Tobacco Use: Yes (QUIT YEARS AGO) Smoking Status: Former smoker FmHx Family History: No diabetes, No coronary disease, No other Physical Exam Vitals Vital Signs Date Temp Pulse Resp B/P (MAP) Pulse Ox O2 O2 Flow FiO2 Time Delivery Rate 06/26/18 98.3 59 18 124/67 99 Room Air 14:01 (86) 06/26/18 98.3 84 18 146/81 100 09:42 (102) Physical Exam Const: No acute distress Head: Atraumatic, no crepitus, no step-offs Eyes: Normal Conjunctiva, PERRL ENT: TM clear, nose without exudate, pharynx pink, no lesions, no exudate, moist Neck: Full range of motion. No meningismus. No lymphadenopathy Resp: Clear to auscultation bilaterally, no wheezing rales rhonchi Cardio: Regular rate and rhythm, no murmurs Abd: Soft, non tender, non distended. Normal bowel sounds Skin: No petechiae or rashes Back: No midline or flank tenderness, no spinal tenderness, point tenderness BL lower back Ext: No cyanosis, or edema; RLE: neg straight leg test, LLE: +straight leg test at 45 degrees, 4/5 strength, decreased sensation to left upper thigh Neur: Awake and alert, CN II-XII, steady gait, clear speech, no pronator drift, neg [id number] Psych: Normal Mood and Affect Result Diagram: 06/26/18 1057 06/26/18 1057 Results 24 hrs Laboratory Tests Test 06/26/18 10:57 White Blood Count 5.3 10^3/ul Red Blood Count 4.57 10^6/ul Hemoglobin 14.4 g/dl Hematocrit 43.5 % Mean Corpuscular Volume 95.2 fl Mean Corpuscular Hemoglobin 31.5 pg Mean Corpuscular Hemoglobin Concent 33.1 g/dl Red Cell Distribution Width 12.7 % Platelet Count 160 10^3/UL Mean Platelet Volume 12.4 fl Immature Granulocytes % 0.200 % Neutrophils % 48.1 % Lymphocytes % 42.2 % Monocytes % 7.3 % Eosinophils % 1.3 % Basophils % 0.9 % Nucleated Red Blood Cells % 0.0 /100WBC Immature Granulocytes # 0.010 10^3/ul Neutrophils # 2.6 10^3/ul Lymphocytes # 2.2 10^3/ul Monocytes # 0.4 10^3/ul Eosinophils # 0.1 10^3/ul Basophils # 0.1 10^3/ul Nucleated Red Blood Cells # 0.0 10^3/ul Urine Color YELLOW Urine Clarity CLEAR Urine pH 7.0 Urine Specific [place] 1.011 Urine Ketones NEGATIVE mg/dL Urine Nitrite NEGATIVE mg/dL Urine Bilirubin NEGATIVE mg/dL Urine Urobilinogen NEGATIVE mg/dL Urine Leukocyte Esterase NEGATIVE Elizabeth/ul Urine Hemoglobin NEGATIVE mg/dL Urine Glucose NEGATIVE mg/dL Urine Total Protein NEGATIVE mg/dl Sodium Level 143 mmol/L Potassium Level 4.4 mmol/L Chloride Level 107 mmol/L Carbon Dioxide Level 29 mmol/L Anion Gap 7 Blood Urea Nitrogen 13 mg/dl Creatinine 0.59 mg/dl Est Glomerular Filtrat Rate mL/min > 60 mL/min Glucose Level 87 mg/dl Calcium Level 9.5 mg/dl Total Bilirubin 0.3 mg/dl Direct Bilirubin 0.00 mg/dl Indirect Bilirubin 0.3 mg/dl Aspartate Amino Transf (AST/SGOT) 28 IU/L Alanine Aminotransferase (ALT/SGPT) 20 IU/L Alkaline Phosphatase 83 IU/L Total Protein 8.0 g/dl Albumin 4.5 g/dl Globulin 3.50 g/dl Albumin/Globulin Ratio 1.28 Current Medications Medications Dose Sig/Silvana Start Time Status Last (Trade) Ordered Route PRN Stop Time Admin Dose Reason Admin Sodium 1,000 ml @ Q1H STAT 06/26/18 DC 06/26/18 Chloride 1,000 mls/hr IV 10:39 11:00 06/26/18 11:38 Morphine 2 mg ONCE STAT 06/26/18 DC 06/26/18 Sulfate IV 10:39 11:00 (morphine) 06/26/18 10:46 10 mg ONCE ONCE 06/26/18 DC 06/26/18 Dexamethasone IV 11:00 10:59 (Decadron) 06/26/18 11:01 Iohexol 150 ml STK-MED 06/26/18 DC (Omnipaque ONCE .ROUTE 12:08 300mg/ ml) 06/26/18 12:09 Sodium 100 ml @ ud STK-MED 06/26/18 DC Chloride ONCE .ROUTE 12:08 06/26/18 12:09 IV Flush 10 ml STK-MED 06/26/18 DC (NS 10 ml) ONCE .ROUTE 12:08 06/26/18 12:09 Procedures/MDM This is a 58-year-old female patient who presents to the emergency room with bilateral back pain. ED COURSE: The patient was stable throughout ED course. I kept the patient and/or family informed of laboratory and diagnostic imaging results throughout the ED course. DIAGNOSTIC IMAGING: Read by radiologist. IMPRESSION: 1. Status post prior cholecystectomy with prominence of the biliary ductal system consistent postsurgical changes. 2. No calcified urinary calculi or obstructive uropathy. 3. Diverticulosis of the sigmoid colon without CT evidence of diverticulitis. 4. No intra-abdominal free air fluid abscesses or lymphadenopathy. MEDICATIONS GIVEN: NS, Morphine, Decadron Patient tolerated medication well with no adverse reactions. Patient reported improvement in pain. MDM: Patient is able to ambulate to treatment area without assistance. Patient is seated on the stretcher without obvious distress. There is no surface trauma. Minor muscle tenderness to palpation, no spasms, no step-off or deformity, no CVA tenderness to percussion, patient is able to stand erect. Normal flexion and extension with lateral bending and rotation without severe limitation. Heel and toe walk with good strength. Due to patient's presentation today there is low suspicion for malignancy, infection, epidural abscess, cauda equina syndrome, herniation, AAA. Patient's musculoskeletal symptoms have stabilized while they have been evaluated in the department and are appropriate for outpatient work up. Patient is being discharged home with instructions to follow-up with primary care provider. Patient is also provided prescription for NSAID with instructions for use of heat, ice, stretching. Red flags discussed, patient verbalized understanding of signs and symptoms to return to emergency room. DISPOSITION: The patient has been discharge home to follow-up with greg schneider. Departure Diagnosis: Primary Impression: Back pain Condition: Stable Patient Instructions: Back Pain (Acute Or Chronic) Referrals: [facility] 7 a.m.- 11 p.m. Every Day of the Week NO APPOINTMENT OR AUTHORIZATION NEEDED [facility] YOU HAVE RECEIVED A MEDICAL SCREENING EXAM AND THE RESULTS INDICATE THAT YOU DO NOT HAVE A CONDITION THAT REQUIRES URGENT TREATMENT IN THE EMERGENCY DEPARTMENT. FURTHER EVALUATION AND TREATMENT OF YOUR CONDITION CAN WAIT UNTIL YOU ARE SEEN IN YOUR DOCTORS OFFICE WITHIN THE NEXT 1-2 DAYS. IT IS YOUR RESPONSIBILITY TO MAKE AN APPOINTMENT FOR FOLOW-UP CARE. IF YOU HAVE A PRIMARY DOCTOR --you should call your primary doctor and schedule an appointment IF YOU DO NOT HAVE A PRIMARY DOCTOR YOU CAN CALL OUR PHYSICIAN REFERRAL HOTLINE AT IF YOU CAN NOT AFFORD TO SEE A PHYSICIAN YOU CAN CHOSE FROM THE FOLLOWING [facility] [address] [facility]. [facility] [address] [facility]. [facility] [address] [facility] [facility] [address] [facility]. [facility] [address] [facility]. [facility]. [address] Additional Instructions: Thank you very much for allowing us to participate in your care. Your health and safety is our top priority at [facility]. Call your primary care doctor TOMORROW for an appointment during the next 2-4 days and bring all the information and medications prescribed. Have prescriptions filled and follow precisely the directions on the label. If the symptoms get worse and your provider is unavailable, return to the Emergency Department immediately. LUCIA CAREY NP June 26, 2018 15:50
== END 2018-06-26 14:05 | disposition home or self-care (01) ==
LOC: FTE 09:38
DX: M54.5 Low back pain (principal); Z87.891 Personal history of nicotine dependence
CPT/HCPCS: 36415; 74177; 80053; 81003; 85025; 96361; 96374; 96375; J1100; J2270; J7030; Q9967; Z7502; Z7610

== ENCOUNTER 2018-10-07 09:47 | Emergency (ER) | payer OTHER ==
[~2018-10-07] VITALS: Wt 63.5 kg
[~2018-10-07 09:47] MED LIST changes: +CYCL10TA7 PO; +IBUP-1542 PO; +MED4DP PO; +METH500T PO; +PRED20TA PO
[2018-10-07 09:49] VITALS: BP 120/74; PULSE 59; RESP 18
[2018-10-07] MEDS ORDERED: METHYLPREDNISOLONE 125 MG INJ IM ONE (10:30)
[2018-10-07] MEDS ORDERED: ACETAMINOPHEN 325 MG TAB PO ONE (10:30)
== END 2018-10-07 10:45 | disposition home or self-care (01) ==
LOC: FTE 09:47
DX: M54.42 Lumbago with sciatica, left side (principal); Z87.891 Personal history of nicotine dependence
CPT/HCPCS: 96372; J2930; Z7502; Z7610